=== PATIENT | female | born 1945 | race Caucasian/White ===

== ENCOUNTER → 2018-07-19 | Outpatient (CLI) | payer MEDICARE ==
[~2018-07-19] MED LIST: ALBU90OI; ALLO100; ATEN50; Aspirin EC81 MG; CHOL10002; FURO40; GABA300; INSULANPEN; K-Tab10 MEQ; MECL12.5; MITIGARE0.6 MG; Nitrostat0.4 MG; Novolog100 UNIT/2; OXYB5; Pravachol80 MG; Prinivil10 MG; RANI150
[2018-07-19 18:08] LABS: BASOPHILS ABSOLUTE AUTO 0.09 K/mm3 (0.00-0.23); BASOPHILS PERCENT AUTO 1 % (0-2); EOSINOPHILS ABSOLUTE AUTO 0.18 K/mm3 (0.00-0.68); EOSINOPHILS PERCENT AUTO 2 % (0-6); Hematocrit 49.3 % (33.0-51.0); Hemoglobin 15.5 g/dL (11.5-16.0); IMMATURE GRAN ABSOLUTE AUTO 0.02 K/mm3 (0.00-0.10); IMMATURE GRAN PERCENT AUTO 0 % (0-1); LYMPHOCYTES ABSOLUTE AUTO 2.14 K/mm3 (0.84-5.20); LYMPHOCYTES PERCENT AUTO 27 % (21-46); MONOCYTES ABSOLUTE AUTO 0.68 K/mm3 (0.16-1.47); MONOCYTES PERCENT AUTO 9 % (4-13); Mean Corpuscular HGB 29.2 pg (26.0-34.0); Mean Corpuscular HGB Conc 31.4 g/dL (31.5-36.5); Mean Corpuscular Volume 93 fL (80-100); Mean Platelet Volume 9.4 fL (9.1-12.4); NEUTROPHILS ABSOLUTE AUTO 4.86 K/mm3 (1.96-9.15); NEUTROPHILS PERCENT AUTO 61 % (41-73); Platelet Count 254 K/mm3 (150-400); RDW Coefficient Variation 14.2 % (11.7-14.2); RDW Standard Deviation 48.2 fL (35.1-46.3); White Blood Cell Count 7.97 K/mm3 (4.00-11.30)
[2018-07-19 19:25] LABS: Alanine Aminotransfer (ALT/SGP 35 U/L (12-78); Alk Phos 66 U/L (50-136); Anion Gap 10 mmol/L (6-16); Aspartate Aminotrans (AST/SGOT 30 U/L (12-37); Bilirubin, Total 0.5 mg/dL (0.1-1.0); Blood Urea Nitrogen 24 mg/dL (8-24); Bun/Creatinine Ratio 25.7 (12.0-20.0); CHOL/HDL RATIO 7.5; CO2, Blood 28 mmol/L (21-32); Calcium, Blood 9.5 mg/dL (8.5-10.1); Chloride, Blood 99 mmol/L (98-108); Cholesterol 264 mg/dL (50-200); Creatinine, Blood 0.93 mg/dL (0.40-1.00); Free Thyroxine 0.88 ng/dL (0.70-1.60); Glomerular Filtration Rate >60 (60-); Glucose, Blood 187 mg/dL (70-99); HDL Cholesterol 35 mg/dL (>39); LDL/HDL RATIO 4.4; Low Density Lipoprotein Chol 155 mg/dL (0-110); Potassium, Blood 4.5 mmol/L (3.5-5.5); Sodium, Blood 137 mmol/L (136-145); Triglycerides 369 mg/dL (30-160); Uric Acid, Blood 8.6 mg/dL (2.6-6.0); Very Low Density Lipoprot Chol 73 mg/dL (6-32)
== END ==
LOC: LAB 17:44 → LAB SHORT 17:44
PROVIDERS: Nurse Practitioner Adult Health
DX: E11.9 Type 2 diabetes mellitus without complications (principal); E78.5 Hyperlipidemia, unspecified; I10 Essential (primary) hypertension; M10.9 Gout, unspecified
CPT/HCPCS: 80053; 80061; 83036; 84439; 84443; 84550; 85025

== ENCOUNTER → 2019-04-26 | Outpatient (CLI) | payer MEDICARE, SELFPAY ==
[2019-04-26 17:49] LABS: Source, Urine Clean Catch
[2019-04-26 18:20] LABS: BASOPHILS ABSOLUTE AUTO 0.08 K/mm3 (0.00-0.23); BASOPHILS PERCENT AUTO 1 % (0-2); EOSINOPHILS ABSOLUTE AUTO 0.18 K/mm3 (0.00-0.68); EOSINOPHILS PERCENT AUTO 3 % (0-6); Hematocrit 45.8 % (33.0-51.0); Hemoglobin 14.4 g/dL (11.5-16.0); IMMATURE GRAN ABSOLUTE AUTO 0.02 K/mm3 (0.00-0.10); IMMATURE GRAN PERCENT AUTO 0 % (0-1); LYMPHOCYTES ABSOLUTE AUTO 2.36 K/mm3 (0.84-5.20); LYMPHOCYTES PERCENT AUTO 35 % (21-46); MONOCYTES ABSOLUTE AUTO 0.62 K/mm3 (0.16-1.47); MONOCYTES PERCENT AUTO 9 % (4-13); Mean Corpuscular HGB 29.3 pg (26.0-34.0); Mean Corpuscular HGB Conc 31.4 g/dL (31.5-36.5); Mean Corpuscular Volume 93 fL (80-100); Mean Platelet Volume 9.2 fL (9.1-12.4); NEUTROPHILS ABSOLUTE AUTO 3.43 K/mm3 (1.96-9.15); NEUTROPHILS PERCENT AUTO 51 % (41-73); Platelet Count 242 K/mm3 (150-400); RDW Coefficient Variation 14.7 % (11.7-14.2); RDW Standard Deviation 50.3 fL (35.1-46.3); Red Blood Cell Count 4.92 M/mm3 (3.80-5.20); White Blood Cell Count 6.69 K/mm3 (4.00-11.30)
[2019-04-26 18:47] LABS: Appearance, Urine Clear (Clear); Bilirubin, Urine Neg (Neg); Blood, Urine Neg (Neg); Color, Urine Yellow (P-Yellow); Glucose Qualitative, Urine Neg (Neg); Ketones, Urine Neg (Neg); Leukocyte Esterase, Urine 1+ (Neg); Nitrite, Urine Neg (Neg); Protein, Urine 1+ (Neg); Urobilinogen, Urine 1+ (Normal)
[2019-04-26 19:15] LABS: Bacteria Few /hpf; Red Blood Cells, Urine 0-2 /hpf (0-2); Squamous Epithelial Cells Few /hpf (Few)
[2019-04-26 19:24] LABS: Alanine Aminotransfer (ALT/SGP 33 U/L (12-78); Albumin, Blood 3.6 g/dL (3.4-5.0); Albumin/Globulin Ratio 0.9 (0.8-1.8); Alk Phos 76 U/L (50-136); Anion Gap 6 mmol/L (6-16); Aspartate Aminotrans (AST/SGOT 13 U/L (12-37); Bilirubin, Total 0.4 mg/dL (0.1-1.0); Blood Urea Nitrogen 12 mg/dL (8-24); Bun/Creatinine Ratio 14.7 (12.0-20.0); CHOL/HDL RATIO 7.1; CO2, Blood 31 mmol/L (21-32); Chloride, Blood 101 mmol/L (98-108); Cholesterol 242 mg/dL (50-200); Creatinine, Blood 0.82 mg/dL (0.40-1.00); Glomerular Filtration Rate >60 (60-); Glucose, Blood 146 mg/dL (70-99); HDL Cholesterol 34 mg/dL (>39); LDL/HDL RATIO 4.2; Low Density Lipoprotein Chol 144 mg/dL (0-110); Potassium, Blood 3.6 mmol/L (3.5-5.5); Sodium, Blood 138 mmol/L (136-145); Total Protein, Blood 7.6 g/dL (6.4-8.2); Triglycerides 319 mg/dL (30-160); Very Low Density Lipoprot Chol 63 mg/dL (6-32)
== END | disposition home or self-care (01) ==
LOC: LAB 17:46 → LAB SHORT 17:46
PROVIDERS: Nurse Practitioner Family
DX: E11.21 Type 2 diabetes mellitus with diabetic nephropathy (principal); E78.2 Mixed hyperlipidemia; K76.0 Fatty (change of) liver, not elsewhere classified
CPT/HCPCS: 80053; 80061; 81001; 82043; 85025; 86803; 87086

== ENCOUNTER → 2019-10-04 | Outpatient (CLI) | payer MEDICARE, OTHER ==
[2019-10-04 18:20] LABS: BASOPHILS PERCENT AUTO 1 % (0-2); EOSINOPHILS ABSOLUTE AUTO 0.15 K/mm3 (0.00-0.68); EOSINOPHILS PERCENT AUTO 2 % (0-6); Hematocrit 46.9 % (33.0-51.0); Hemoglobin 15.3 g/dL (11.5-16.0); IMMATURE GRAN ABSOLUTE AUTO 0.02 K/mm3 (0.00-0.10); IMMATURE GRAN PERCENT AUTO 0 % (0-1); LYMPHOCYTES ABSOLUTE AUTO 2.53 K/mm3 (0.84-5.20); LYMPHOCYTES PERCENT AUTO 32 % (21-46); MONOCYTES ABSOLUTE AUTO 0.67 K/mm3 (0.16-1.47); MONOCYTES PERCENT AUTO 9 % (4-13); Mean Corpuscular HGB 29.7 pg (26.0-34.0); Mean Corpuscular HGB Conc 32.6 g/dL (31.5-36.5); Mean Corpuscular Volume 91 fL (80-100); Mean Platelet Volume 9.5 fL (9.1-12.4); NEUTROPHILS ABSOLUTE AUTO 4.44 K/mm3 (1.96-9.15); NEUTROPHILS PERCENT AUTO 56 % (41-73); Platelet Count 263 K/mm3 (150-400); RDW Coefficient Variation 14.1 % (11.7-14.2); RDW Standard Deviation 46.5 fL (35.1-46.3); Red Blood Cell Count 5.16 M/mm3 (3.80-5.20); White Blood Cell Count 7.91 K/mm3 (4.00-11.30)
[2019-10-04 18:24] LABS: Appearance, Urine Clear (Clear); Bilirubin, Urine Neg (Neg); Blood, Urine Neg (Neg); Color, Urine Yellow (P-Yellow); Glucose Qualitative, Urine Neg (Neg); Ketones, Urine Neg (Neg); Leukocyte Esterase, Urine Neg (Neg); Nitrite, Urine Neg (Neg); Protein, Urine 2+ (Neg); Specific Gravity, Urine 1.015 (1.003-1.022); Urobilinogen, Urine 1+ (Normal)
[2019-10-04 18:41] LABS: Bacteria Few /hpf; Red Blood Cells, Urine Not Seen /hpf (0-2); Squamous Epithelial Cells Few /hpf (Few); White Blood Cells, Urine 0-2 /hpf (0-5)
[2019-10-04 19:15] LABS: Alanine Aminotransfer (ALT/SGP 21 U/L (12-78); Albumin, Blood 3.8 g/dL (3.4-5.0); Alk Phos 79 U/L (50-136); Anion Gap 7 mmol/L (6-16); Aspartate Aminotrans (AST/SGOT 10 U/L (12-37); Bilirubin, Total 0.6 mg/dL (0.1-1.0); Blood Urea Nitrogen 15 mg/dL (8-24); Bun/Creatinine Ratio 20.2 (12.0-20.0); CHOL/HDL RATIO 7.8; CO2, Blood 29 mmol/L (21-32); Calcium, Blood 9.4 mg/dL (8.5-10.1); Chloride, Blood 100 mmol/L (98-108); Cholesterol 241 mg/dL (50-200); Creatinine, Blood 0.74 mg/dL (0.40-1.00); Globulin, Blood 3.8 g/dL (2.2-4.0); Glomerular Filtration Rate >60 (60-); Glucose, Blood 146 mg/dL (70-99); HDL Cholesterol 31 mg/dL (>39); LDL/HDL RATIO 4.9; Low Density Lipoprotein Chol 153 mg/dL (0-110); Sodium, Blood 136 mmol/L (136-145); Total Protein, Blood 7.6 g/dL (6.4-8.2); Triglycerides 285 mg/dL (30-160); Very Low Density Lipoprot Chol 57 mg/dL (6-32)
== END ==
LOC: LAB 16:29 → LAB SHORT 16:29
PROVIDERS: Nurse Practitioner Family
DX: E11.21 Type 2 diabetes mellitus with diabetic nephropathy (principal); E78.2 Mixed hyperlipidemia
CPT/HCPCS: 80053; 80061; 81001; 82043; 85025

== ENCOUNTER → 2020-08-30 | Outpatient (CLI) | payer MEDICARE, OTHER ==
[2020-08-30 19:02] LABS: BASOPHILS PERCENT AUTO 1 % (0-2); EOSINOPHILS ABSOLUTE AUTO 0.18 K/mm3 (0.00-0.68); EOSINOPHILS PERCENT AUTO 2 % (0-6); Hematocrit 47.7 % (33.0-51.0); Hemoglobin 15.1 g/dL (11.5-16.0); IMMATURE GRAN ABSOLUTE AUTO 0.02 K/mm3 (0.00-0.10); IMMATURE GRAN PERCENT AUTO 0 % (0-1); LYMPHOCYTES ABSOLUTE AUTO 2.44 K/mm3 (0.84-5.20); LYMPHOCYTES PERCENT AUTO 33 % (21-46); MONOCYTES ABSOLUTE AUTO 0.56 K/mm3 (0.16-1.47); MONOCYTES PERCENT AUTO 8 % (4-13); Mean Corpuscular HGB 28.9 pg (26.0-34.0); Mean Corpuscular HGB Conc 31.7 g/dL (31.5-36.5); Mean Corpuscular Volume 91 fL (80-100); Mean Platelet Volume 9.5 fL (9.1-12.4); NEUTROPHILS ABSOLUTE AUTO 4.15 K/mm3 (1.96-9.15); NEUTROPHILS PERCENT AUTO 56 % (41-73); Platelet Count 259 K/mm3 (150-400); RDW Standard Deviation 49.7 fL (35.1-46.3); Red Blood Cell Count 5.22 M/mm3 (3.80-5.20); White Blood Cell Count 7.45 K/mm3 (4.00-11.30)
[2020-08-30 19:39] LABS: Alanine Aminotransfer (ALT/SGP 17 U/L (12-78); Albumin, Blood 3.8 g/dL (3.4-5.0); Albumin/Globulin Ratio 1.1 (0.8-1.8); Alk Phos 74 U/L (50-136); Anion Gap 6 mmol/L (6-16); Aspartate Aminotrans (AST/SGOT 14 U/L (12-37); Bilirubin, Total 0.5 mg/dL (0.1-1.0); Blood Urea Nitrogen 16 mg/dL (8-24); Bun/Creatinine Ratio 18.6 (12.0-20.0); CHOL/HDL RATIO 7.4; CO2, Blood 33 mmol/L (21-32); Calcium, Blood 9.6 mg/dL (8.5-10.1); Chloride, Blood 103 mmol/L (98-108); Cholesterol 253 mg/dL (50-200); Creatinine, Blood 0.86 mg/dL (0.40-1.00); Globulin, Blood 3.6 g/dL (2.2-4.0); Glomerular Filtration Rate >60 (60-); Glucose, Blood 99 mg/dL (70-99); HDL Cholesterol 34 mg/dL (>39); LDL/HDL RATIO 4.5; Low Density Lipoprotein Chol 154 mg/dL (0-110); Potassium, Blood 4.1 mmol/L (3.5-5.5); Sodium, Blood 142 mmol/L (136-145); Total Protein, Blood 7.4 g/dL (6.4-8.2); Triglycerides 327 mg/dL (30-160); Very Low Density Lipoprot Chol 65 mg/dL (6-32)
== END | disposition home or self-care (01) ==
LOC: LAB SHORT 17:35 → LAB 17:35
PROVIDERS: Nurse Practitioner Family
DX: E11.21 Type 2 diabetes mellitus with diabetic nephropathy (principal)
CPT/HCPCS: 80053; 80061; 83036; 85025

== ENCOUNTER → 2020-12-05 | Outpatient (CLI) | payer MEDICARE, OTHER ==
[2020-12-05 19:10] LABS: BASOPHILS ABSOLUTE AUTO 0.07 K/mm3 (0.00-0.23); BASOPHILS PERCENT AUTO 1 % (0-2); EOSINOPHILS ABSOLUTE AUTO 0.18 K/mm3 (0.00-0.68); EOSINOPHILS PERCENT AUTO 2 % (0-6); Hematocrit 46.3 % (33.0-51.0); Hemoglobin 14.8 g/dL (11.5-16.0); IMMATURE GRAN ABSOLUTE AUTO 0.03 K/mm3 (0.00-0.10); IMMATURE GRAN PERCENT AUTO 0 % (0-1); LYMPHOCYTES ABSOLUTE AUTO 2.29 K/mm3 (0.84-5.20); LYMPHOCYTES PERCENT AUTO 28 % (21-46); MONOCYTES ABSOLUTE AUTO 0.56 K/mm3 (0.16-1.47); MONOCYTES PERCENT AUTO 7 % (4-13); Mean Corpuscular HGB 29.2 pg (26.0-34.0); Mean Corpuscular Volume 91 fL (80-100); Mean Platelet Volume 9.4 fL (9.1-12.4); NEUTROPHILS ABSOLUTE AUTO 5.07 K/mm3 (1.96-9.15); NEUTROPHILS PERCENT AUTO 62 % (41-73); Platelet Count 268 K/mm3 (150-400); RDW Coefficient Variation 15.2 % (11.7-14.2); RDW Standard Deviation 50.8 fL (35.1-46.3); Red Blood Cell Count 5.07 M/mm3 (3.80-5.20)
[2020-12-05 20:18] LABS: Alanine Aminotransfer (ALT/SGP 22 U/L (12-78); Albumin, Blood 3.6 g/dL (3.4-5.0); Albumin/Globulin Ratio 1.1 (0.8-1.8); Alk Phos 77 U/L (50-136); Anion Gap 7 mmol/L (6-16); Aspartate Aminotrans (AST/SGOT 16 U/L (12-37); Bilirubin, Total 0.3 mg/dL (0.1-1.0); Blood Urea Nitrogen 15 mg/dL (8-24); Bun/Creatinine Ratio 22.5 (12.0-20.0); CHOL/HDL RATIO 8.9; CO2, Blood 28 mmol/L (21-32); Calcium, Blood 8.6 mg/dL (8.5-10.1); Chloride, Blood 102 mmol/L (98-108); Cholesterol 240 mg/dL (50-200); Creatinine, Blood 0.67 mg/dL (0.40-1.00); Globulin, Blood 3.3 g/dL (2.2-4.0); Glomerular Filtration Rate >60 (60-); Glucose, Blood 172 mg/dL (70-99); HDL Cholesterol 27 mg/dL (>39); LDL/HDL RATIO Unable to Calculate; Low Density Lipoprotein Chol Unable to Calculate mg/dL (0-110); Potassium, Blood 3.7 mmol/L (3.5-5.5); Sodium, Blood 137 mmol/L (136-145); Total Protein, Blood 6.9 g/dL (6.4-8.2); Triglycerides 541 mg/dL (30-160); Very Low Density Lipoprot Chol Unable to Calculate mg/dL (6-32)
== END ==
LOC: LAB 17:09 → LAB SHORT 17:09
PROVIDERS: Nurse Practitioner Family
DX: E11.21 Type 2 diabetes mellitus with diabetic nephropathy (principal); E78.2 Mixed hyperlipidemia
CPT/HCPCS: 80053; 80061; 83036; 83721; 85025

== ENCOUNTER 2023-03-29 10:50 | Emergency (ER) | payer MEDICARE, OTHER ==
[~2023-03-29] VITALS: Ht 157.5 cm; Wt 106.6 kg
[~2023-03-29 10:50] MED LIST changes: -ATEN50; +ATEN50 PO; +FURO80 PO
[2023-03-29] MEDS ORDERED: ZYRTEC10 M1 PO (11:03)
[2023-03-29] MEDS ORDERED: LASIX40 MG PO (11:03)
[2023-03-29] MEDS ORDERED: APRI1 EACH (11:04)
[2023-03-29] MEDS ORDERED: ASPIR 8181 M1 PO (11:04)
[2023-03-29] MEDS ORDERED: GABA300 PO (11:05)
[2023-03-29] MEDS ORDERED: ZYLOPRIM300 M1 PO (11:05)
[2023-03-29] MEDS ORDERED: [UNRECOGNIZED DRUG - OTHER] TOP (11:07)
[2023-03-29] MEDS ORDERED: INSDET100 SC (11:08)
[2023-03-29] MEDS ORDERED: NOVOLIN N100 UNIT/2 SC (11:10)
[2023-03-29 11:42] VITALS: BP 110/60
[2023-03-29] MEDS ORDERED: OXYC5 PO (11:52)
== END 2023-03-29 12:04 | disposition home or self-care (01) ==
LOC: ER 10:50
DX: S80.01XA Contusion of right knee, initial encounter (principal); S50.311A Abrasion of right elbow, initial encounter; Z88.5 Allergy status to narcotic agent; Z88.6 Allergy status to analgesic agent; Z87.891 Personal history of nicotine dependence; W18.30XA Fall on same level, unspecified, initial encounter
CPT/HCPCS: 73562-RT; A9270

== ENCOUNTER 2023-09-10 09:53 | Day surgery (SDC) | payer MEDICARE, OTHER ==
[~2023-09-10] VITALS: Ht 154.9 cm; Wt 105.1 kg
[~2023-09-10 09:53] MED LIST changes: +ACETAMINOPHEN PO; +APRI1 EACH; +ASPIR 8181 M1 PO; +GABA300 PO; +LASIX40 MG PO; +LEVEMIR100 UNIT/1 SC; +MIRALAX17 GM PO; +NOVOLIN N100 UNIT/2 SC; +OXYC5 PO; +PEPCID20 MG PO; +SENN187 PO; +TRAM50 PO; +ZYLOPRIM300 M1 PO; +ZYRTEC10 M1 PO; +[UNRECOGNIZED DRUG - OTHER] TOP
[2023-09-10 10:26] VITALS: BP 135/69
--- NOTE | 2023-09-10 10:41 | NUR ---
Wheelchaired into Day Surgery. SBA needed. Uses walker at home. History, Chart, Medications and Allergies reviewed before start of procedure. Pre-Op teaching done. Pt verbalizes understanding. Patient States Post-Procedure ride home has been arranged.
[2023-09-10] MEDS ORDERED: STEGLATRO5 MG PO (10:45)
[2023-09-10] MEDS ORDERED: ZYRTEC10 M2 PO (10:45)
[2023-09-10] MEDS ORDERED: ALLO300 PO (10:46)
[2023-09-10] MEDS ORDERED: FAMO20 PO (10:46)
--- NOTE | 2023-09-10 11:11 | NUR ---
1110 SPRAYED 4% LIDOCAINE TO BACK OF THROAT PER ANESTHESIA ORDERS PRIOR TO PROCEDURE.
--- NOTE | 2023-09-10 11:29 | NUR ---
09/10/[address] HAWK, SEE ANESTHESIA RECORDS
[2023-09-10 11:34] VITALS: BP 137/66
[2023-09-10 11:45] VITALS: BP 134/80
[2023-09-10 12:00] VITALS: BP 147/78
[2023-09-10 12:15] VITALS: BP 135/63
[2023-09-10 12:30] VITALS: BP 142/78
--- NOTE | 2023-09-10 13:10 | NUR ---
Patient up to Ambulate independently WITH WALKER,NORMAL FOR HER. Gait steady. Discharge instructions reviewed with patient. Patient verbalizes understanding. Copy given to patient to take home, WELL DAUGHTER. DAUGHTER TO CURLING MACHINE OPERATOR PRESCRIPTION FROM DR. LEBRON'S OFFICE WHO REPORTS HAVING IT AT THE HYDROELECTRIC MECHANIC. Patient States Post-Procedure ride home has been arranged. Discharged via wheelchair to private car for ride home. WILL CALL [facility] AND GIVE THEM REPORT WELL. PT REPORTS READY TO GO HOME. DENIES CP/SOB,N/V. PT REPORTS NOT TAKING HER ATENOLOL OR OTHER MEDICATIONS THIS MORNING. PT ON ROOM AIR 92-94%,SEE VS.
--- NOTE | 2023-09-10 13:20 | NUR ---
SUDHAKAR AT CANAL POINT GIVEN REPORT, INCLUDING TO GIVE MEDICATIONS AND NEW PRESCRIPTION.
== END 2023-09-10 13:20 | disposition home or self-care (01) ==
LOC: ORSCMMR 09:53 → ORD 11:15 → ORSCMMR 11:15
PROVIDERS: Internal Medicine Gastroenterology
PROC: 0DB68ZX Excision of Stomach, Via Natural or Artificial Opening Endoscopic, Diagnostic (ICD-10-PCS; principal; 2023-09-10 11:15)
PROC: 0DB58ZX Excision of Esophagus, Via Natural or Artificial Opening Endoscopic, Diagnostic (ICD-10-PCS; principal; 2023-09-10 11:15)
DX: R13.14 Dysphagia, pharyngoesophageal phase (principal); K20.90 Esophagitis, unspecified without bleeding; K29.70 Gastritis, unspecified, without bleeding; K22.2 Esophageal obstruction; J44.9 Chronic obstructive pulmonary disease, unspecified; E11.9 Type 2 diabetes mellitus without complications; M10.9 Gout, unspecified; G47.30 Sleep apnea, unspecified; I42.2 Other hypertrophic cardiomyopathy; E66.01 Morbid (severe) obesity due to excess calories; Z68.41 Body mass index [BMI] 40.0-44.9, adult; I10 Essential (primary) hypertension; Z99.81 Dependence on supplemental oxygen; Z79.4 Long term (current) use of insulin; Z79.899 Other long term (current) drug therapy
CPT/HCPCS: 82947; 88305; 88312; 93005; 93010; C1726; J2001; J2704; J7120

== ENCOUNTER → 2023-10-22 | Outpatient (CLI) | payer MEDICARE, OTHER ==
[~2023-10-22] MED LIST changes: +ALLO300 PO; +FAMO20 PO; +STEGLATRO5 MG PO; +ZYRTEC10 M2 PO
[2023-10-22 14:13] LABS: Appearance, Urine Hazy (Clear); Bilirubin, Urine Neg (Neg); Blood, Urine Neg (Neg); Color, Urine Yellow (P-Yellow); Glucose Qualitative, Urine Neg (Neg); Ketones, Urine Neg (Neg); Leukocyte Esterase, Urine Neg (Neg); Nitrite, Urine Neg (Neg); Protein, Urine 3+ (Neg); Urobilinogen, Urine NORM (Normal)
[2023-10-22 14:26] LABS: Amorphous Light (0-Heavy); Bacteria Few /hpf; Hyaline Casts 0-2 /lpf (0-2); Red Blood Cells, Urine 0-2 /hpf (0-2); Squamous Epithelial Cells Few /hpf (Few)
== END ==
LOC: LAB SHORT 10:30 → LAB 10:30
PROVIDERS: Student in an Organized Health Care Education/Training Program
DX: N39.0 Urinary tract infection, site not specified (principal)
CPT/HCPCS: 81001

== ENCOUNTER 2024-02-16 09:03 | Emergency (ER) | payer MEDICARE, OTHER ==
[~2024-02-16] VITALS: Ht 157.5 cm; Wt 111.1 kg
[2024-02-16] MEDS ORDERED: OxyCODONE HCL 5 MG TAB PO ONE (09:45)
[2024-02-16 11:30] VITALS: BP 105/95
== END 2024-02-16 11:33 | disposition home or self-care (01) ==
LOC: ER 09:03
DX: S20.219A Contusion of unspecified front wall of thorax, initial encounter (principal); I10 Essential (primary) hypertension; J44.9 Chronic obstructive pulmonary disease, unspecified; I42.2 Other hypertrophic cardiomyopathy; W18.30XA Fall on same level, unspecified, initial encounter; Y92.129 Unspecified place in nursing home as the place of occurrence of the external cause; Z88.8 Allergy status to other drugs, medicaments and biological substances; Z88.5 Allergy status to narcotic agent; Z79.899 Other long term (current) drug therapy; Z79.82 Long term (current) use of aspirin; Z79.4 Long term (current) use of insulin; Z79.84 Long term (current) use of oral hypoglycemic drugs; Z87.891 Personal history of nicotine dependence
CPT/HCPCS: 71046; 93005; 93010; 99284-25; A9270

== ENCOUNTER 2024-08-16 08:45 | Day surgery (SDC) | payer MEDICARE, OTHER ==
[~2024-08-16] VITALS: Ht 157.5 cm; Wt 104.5 kg
[~2024-08-16 08:45] MED LIST changes: +Aspir 8181 MG PO; +BASAGLAR K100 UNIT/1; +Balanced Salt Epinephrine Irrigation Solution 500 mL IR SCH; +INSULIN AS100 UNIT/8 SC; +INSULIN AS100 UNIT/9 SC; +Lidocaine HCl/Pf 1% 5 ML VIAL ONE; +Lidocaine HCl/Pf 1% 5 ML VIAL XX SCH; +Moxifloxacin HCL 0.5 MG/0.1 ML 0.4MLSYR LEFTEYE SCH; +NS 500 ML IV ONE; +PHENYLEPHRINE\\TROPICAMIDE\\TETRACAINE OPHTHALMIC DILATING SOLN LEFTEYE PRN; +Povidone-Iodine 450 DROP/30 ML Solution LEFTEYE SCH; +Povidone-Iodine 450 DROP/30 ML Solution ONE; +TOUJEO MAX300 UNIT/2 SC; +Tetracaine HCl/Pf 0.5% Opth Soln 4 ml ONE
[2024-08-16] MEDS ORDERED: ACET500 PO (09:05)
[2024-08-16] MEDS ORDERED: ALBU90OI INH (09:07)
[2024-08-16] MEDS ORDERED: NS 500 ML IV ONE (09:18)
--- NOTE | 2024-08-16 09:19 | NUR ---
08/16/24 0919 Zuleyma Peter CALL LIGHT WITHIN REACH. TETRACAINE IN LEFT EYE AT 0903 AND PLEDGETT IN AT 0904
[2024-08-16] MEDS ORDERED: FentaNYL Citrate 50 MCG/ML 2 ML Injection ONE (10:06)
[2024-08-16] MEDS ORDERED: Midazolam HCl 1MG / ML 2ML Vial ONE (10:06)
[2024-08-16 10:45] VITALS: BP 141/63
== END 2024-08-16 11:11 | disposition home or self-care (01) ==
LOC: ORSCSDS 08:45
PROVIDERS: Student in an Organized Health Care Education/Training Program
PROC: 08RK3JZ Replacement of Left Lens with Synthetic Substitute, Percutaneous Approach (ICD-10-PCS; principal; 2024-08-16 10:00)
DX: E11.36 Type 2 diabetes mellitus with diabetic cataract (principal); H25.813 Combined forms of age-related cataract, bilateral; J44.89 Other specified chronic obstructive pulmonary disease; Z87.891 Personal history of nicotine dependence; G47.33 Obstructive sleep apnea (adult) (pediatric); E66.01 Morbid (severe) obesity due to excess calories; Z68.41 Body mass index [BMI] 40.0-44.9, adult; Z79.4 Long term (current) use of insulin; Z79.899 Other long term (current) drug therapy; Z79.82 Long term (current) use of aspirin
CPT/HCPCS: 82947; J2001; J2250; J3010; J7040; V2632

== ENCOUNTER → 2024-08-19 | Outpatient (CLI) | payer MEDICARE, OTHER ==
[~2024-08-19] MED LIST changes: +ACET500; +ALBU90OI INH; -Balanced Salt Epinephrine Irrigation Solution 500 mL IR SCH; -Lidocaine HCl/Pf 1% 5 ML VIAL ONE; -Lidocaine HCl/Pf 1% 5 ML VIAL XX SCH; -Moxifloxacin HCL 0.5 MG/0.1 ML 0.4MLSYR LEFTEYE SCH; -NS 500 ML IV ONE; -PHENYLEPHRINE\\TROPICAMIDE\\TETRACAINE OPHTHALMIC DILATING SOLN LEFTEYE PRN; -Povidone-Iodine 450 DROP/30 ML Solution LEFTEYE SCH; -Povidone-Iodine 450 DROP/30 ML Solution ONE; -Tetracaine HCl/Pf 0.5% Opth Soln 4 ml ONE
[2024-08-19 14:35] LABS: Source, Urine Voided
[2024-08-19 16:15] LABS: Appearance, Urine Clear (Clear); Bilirubin, Urine Neg (Neg); Blood, Urine Neg (Neg); Color, Urine Yellow (P-Yellow); Glucose Qualitative, Urine Neg (Neg); Ketones, Urine Neg (Neg); Leukocyte Esterase, Urine Neg (Neg); Nitrite, Urine Neg (Neg); Protein, Urine 4+ (Neg); Specific Gravity, Urine 1.025 (1.003-1.022); Urobilinogen, Urine NORM (Normal)
[2024-08-19 16:28] LABS: Amorphous Light (0-Heavy); Bacteria Few /hpf; Red Blood Cells, Urine Not Seen /hpf (0-2); Squamous Epithelial Cells Few /hpf (Few); White Blood Cells, Urine 0-2 /hpf (0-5)
== END ==
LOC: LAB 14:32 → LAB SHORT 14:32
PROVIDERS: Student in an Organized Health Care Education/Training Program
DX: R32 Unspecified urinary incontinence (principal)
CPT/HCPCS: 81001

== ENCOUNTER 2024-08-23 08:59 | Day surgery (SDC) | payer MEDICARE, OTHER ==
[~2024-08-23] VITALS: Ht 157.5 cm; Wt 105.1 kg
[~2024-08-23 08:59] MED LIST changes: +Balanced Salt Epinephrine Irrigation Solution 500 mL IR SCH; +Lidocaine HCl/Pf 1% 5 ML VIAL XX SCH; +Moxifloxacin HCL 0.5 MG/0.1 ML 0.4MLSYR RIGHTEYE SCH; +NS 500 ML IV ONE; +PHENYLEPHRINE\\TROPICAMIDE\\TETRACAINE OPHTHALMIC DILATING SOLN RIGHTEYE PRN; +Povidone-Iodine 450 DROP/30 ML Solution ONE; +Povidone-Iodine 450 DROP/30 ML Solution RIGHTEYE SCH; +Tetracaine HCl/Pf 0.5% Opth Soln 4 ml ONE; +Tropicamide 1% Opth Soln 15 ML BTL ONE
[2024-08-23] MEDS ORDERED: Midazolam HCl 1MG / ML 2ML Vial ONE (10:08)
[2024-08-23 10:52] VITALS: BP 135/60
--- NOTE | 2024-08-23 10:53 | NUR ---
08/23/24 1053 Mera Kimbrough PT INITIALLY VERY SLEEPY ON ARRIVAL TO SDU, SATS DOWN TO 88%. PLACED 4L BY NC, SATS UP TO 98%. PT SAT UP IN CHAIR, ON RA SATS 100% FOR 7 MIN.
== END 2024-08-23 10:59 | disposition home or self-care (01) ==
LOC: ORSCSDS 08:59
PROVIDERS: Student in an Organized Health Care Education/Training Program
PROC: 08RJ3JZ Replacement of Right Lens with Synthetic Substitute, Percutaneous Approach (ICD-10-PCS; principal; 2024-08-23 10:30)
DX: E11.36 Type 2 diabetes mellitus with diabetic cataract (principal); H25.811 Combined forms of age-related cataract, right eye; E11.22 Type 2 diabetes mellitus with diabetic chronic kidney disease; I12.9 Hypertensive chronic kidney disease with stage 1 through stage 4 chronic kidney disease, or unspecified chronic kidney disease; N18.9 Chronic kidney disease, unspecified; J44.9 Chronic obstructive pulmonary disease, unspecified; Z79.4 Long term (current) use of insulin; Z79.899 Other long term (current) drug therapy; E66.01 Morbid (severe) obesity due to excess calories; Z68.41 Body mass index [BMI] 40.0-44.9, adult
CPT/HCPCS: 82947; J2250; J7040; V2632

== ENCOUNTER 2024-08-28 12:42 | Inpatient (IN) | payer MEDICARE, OTHER ==
[~2024-08-28] VITALS: Ht 162.6 cm; Wt 105.5 kg
[~2024-08-28 12:42] MED LIST changes: -ACET500; +ACET500 PO; -Balanced Salt Epinephrine Irrigation Solution 500 mL IR SCH; -Lidocaine HCl/Pf 1% 5 ML VIAL XX SCH; -Moxifloxacin HCL 0.5 MG/0.1 ML 0.4MLSYR RIGHTEYE SCH; -NS 500 ML IV ONE; -PHENYLEPHRINE\\TROPICAMIDE\\TETRACAINE OPHTHALMIC DILATING SOLN RIGHTEYE PRN; -Povidone-Iodine 450 DROP/30 ML Solution ONE; -Povidone-Iodine 450 DROP/30 ML Solution RIGHTEYE SCH; -Tetracaine HCl/Pf 0.5% Opth Soln 4 ml ONE; -Tropicamide 1% Opth Soln 15 ML BTL ONE
[2024-08-28] MEDS ORDERED: NS 1,000 ML IV ONE (13:20)
[2024-08-28 13:41] LABS: BASOPHILS ABSOLUTE AUTO 0.05 K/mm3 (0.00-0.23); BASOPHILS PERCENT AUTO 1 % (0-2); EOSINOPHILS ABSOLUTE AUTO 0.04 K/mm3 (0.00-0.68); EOSINOPHILS PERCENT AUTO 1 % (0-6); Hematocrit 51.1 % (33.0-51.0); Hemoglobin 15.4 g/dL (11.5-16.0); IMMATURE GRAN ABSOLUTE AUTO 0.04 K/mm3 (0.00-0.10); IMMATURE GRAN PERCENT AUTO 1 % (0-1); LYMPHOCYTES ABSOLUTE AUTO 1.09 K/mm3 (0.84-5.20); LYMPHOCYTES PERCENT AUTO 21 % (21-46); MONOCYTES ABSOLUTE AUTO 0.87 K/mm3 (0.16-1.47); MONOCYTES PERCENT AUTO 16 % (4-13); Mean Corpuscular HGB 27.1 pg (26.0-34.0); Mean Corpuscular HGB Conc 30.1 g/dL (31.5-36.5); Mean Corpuscular Volume 90 fL (80-100); Mean Platelet Volume 8.8 fL (9.1-12.4); NEUTROPHILS ABSOLUTE AUTO 3.24 K/mm3 (1.96-9.15); NEUTROPHILS PERCENT AUTO 61 % (41-73); Platelet Count 178 K/mm3 (150-400); RDW Coefficient Variation 15.9 % (11.7-14.2); RDW Standard Deviation 52.6 fL (35.1-46.3); Red Blood Cell Count 5.68 M/mm3 (3.80-5.20); White Blood Cell Count 5.33 K/mm3 (4.00-11.30)
[2024-08-28 14:11] LABS: Albumin, Blood 3.2 g/dL (3.4-5.0); Albumin/Globulin Ratio 0.8 (0.8-1.8); Bilirubin, Total 0.4 mg/dL (0.1-1.0); Bun/Creatinine Ratio 33.1 (12.0-20.0); Calcium, Blood 9.4 mg/dL (8.5-10.1); Creatinine, Blood 1.54 mg/dL (0.40-1.00); Potassium, Blood 4.4 mmol/L (3.5-5.5); Total Protein, Blood 7.2 g/dL (6.4-8.2)
[2024-08-28] MEDS ORDERED: Albuterol 2.5 MG/3 ML VIAL INH PRN (18:20)
[2024-08-28] MEDS ORDERED: NS 1,000 ML IV SCH (18:25)
[2024-08-28] MEDS ORDERED: Ondansetron HCl 2 MG / ML 2ML Vial IV PRN (18:25)
[2024-08-28 20:23] VITALS: BP 146/62
[2024-08-28 20:47] LABS: Influenza A, PCR NEGATIVE (NEGATIVE); Influenza B, PCR NEGATIVE (NEGATIVE); Resp Syncytial Virus, PCR NEGATIVE (NEGATIVE); SARS-Cov-2 (COVID-19) PCR, MMC NEGATIVE (NEGATIVE)
[2024-08-28 21:00] VITALS: BP 142/68
[2024-08-28] MEDS ORDERED: Gabapentin 300 MG Cap PO SCH (21:00)
[2024-08-28] MEDS ORDERED: Insulin Glargine-Yfgn 100 Unit/mL 3 ML SYR SC SCH (21:00)
[2024-08-28] MEDS ORDERED: Famotidine 20 MG Tab PO SCH (21:00)
[2024-08-28 22:00] VITALS: BP 146/67
[2024-08-28] MEDS ORDERED: FLU VACC TS2024-25(6MOS UP)/PF 45 MCG/0.5 ML SYRINGE IM ONE (22:00)
[2024-08-28] MEDS ORDERED: [UNRECOGNIZED DRUG - SUPPLY] (22:31)
[2024-08-28] MEDS ORDERED: OCUFLOX511 (22:32)
[2024-08-28] MEDS ORDERED: FUROSEMIDE40 MG PO (22:32)
[2024-08-28] MEDS ORDERED: KETOROLAC TROMET3 ML (22:33)
[2024-08-28] MEDS ORDERED: NEURONTIN300 MG PO (22:33)
[2024-08-28] MEDS ORDERED: PRED FORTE5 ML (22:36)
[2024-08-28] MEDS ORDERED: NOVOLOG100 UNIT/2 (22:37)
[2024-08-28] MEDS ORDERED: TOUJEO SOL300 UNIT/2 (22:38)
[2024-08-28] MEDS ORDERED: ACET500 PO (22:57)
[2024-08-28 23:00] VITALS: BP 137/68
[2024-08-28 23:00] LABS: Source, Urine Clean Catch
[2024-08-28] MEDS ORDERED: MIRALAX17 GM PO (23:01)
[2024-08-28] MEDS ORDERED: SENN187 PO (23:01)
[2024-08-28 23:22] LABS: Bilirubin, Urine Neg (Neg); Blood, Urine 4+ (Neg); Glucose Qualitative, Urine 1+ (Neg); Ketones, Urine Neg (Neg); Leukocyte Esterase, Urine 1+ (Neg); Nitrite, Urine Neg (Neg); Protein, Urine 4+ (Neg); Urobilinogen, Urine NORM (Normal)
[2024-08-28 23:23] LABS: Appearance, Urine Hazy (Clear); Color, Urine Yellow (P-Yellow)
[2024-08-28 23:24] LABS: Bacteria Few /hpf; Other Crystals Many /hpf; Red Blood Cells, Urine 0-2 /hpf (0-2); Squamous Epithelial Cells Few /hpf (Few)
[2024-08-29] VITALS (33 sets, daily range): BP systolic 102–140; BP diastolic 42–85
[2024-08-29] MEDS ORDERED: Insulin Human Lispro 100 Units/ML 3ML Syringe SC SCH
[2024-08-29 02:43] LABS: Base Excess Venous 6.4 mmol/L; Bicarbonate Venous 28.5 mmol/L (24.0-30.0); pH Blood Venous 7.34 (7.34-7.37)
[2024-08-29 02:46] LABS: Hematocrit 46.3 % (33.0-51.0); Hemoglobin 13.8 g/dL (11.5-16.0); Mean Corpuscular HGB 27.2 pg (26.0-34.0); Mean Corpuscular HGB Conc 29.8 g/dL (31.5-36.5); Mean Corpuscular Volume 91 fL (80-100); Mean Platelet Volume 8.7 fL (9.1-12.4); Platelet Count 163 K/mm3 (150-400); RDW Coefficient Variation 15.9 % (11.7-14.2); RDW Standard Deviation 53.1 fL (35.1-46.3); Red Blood Cell Count 5.07 M/mm3 (3.80-5.20)
--- NOTE | 2024-08-29 03:00 | NUR ---
CHANGE IN NEURO: PATIENT HAS BECAME MORE LETHARGIC, OPENS TO EYES, AND RESPONDS TO PAINFUL STIMULI. DR. SILVEIRA, AT BEDSIDE. PATIENT PLACED ON V30 BIPAP. SEE RT ASSESSMENT. PREVIOUS ABLE TO ANSWER QUESTIONS APPROPRIATELY WITH MILD CONFUSION. PATIENT DIFFICULTY WITH SPEECH. VERY LETHARGIC. VBG OBTAINED, AND REPEAT ONCE ON BIPAP FOR A HOUR.
[2024-08-29 03:08] LABS: Albumin, Blood 2.9 g/dL (3.4-5.0); Albumin/Globulin Ratio 0.8 (0.8-1.8); Bilirubin, Total 0.4 mg/dL (0.1-1.0); Bun/Creatinine Ratio 31.6 (12.0-20.0); Calcium, Blood 8.7 mg/dL (8.5-10.1); Creatinine, Blood 1.36 mg/dL (0.40-1.00); Globulin, Blood 3.5 g/dL (2.2-4.0); Magnesium, Blood 2.1 mg/dL (1.6-2.4); Potassium, Blood 4.2 mmol/L (3.5-5.5); Total Protein, Blood 6.4 g/dL (6.4-8.2)
--- NOTE | 2024-08-29 04:25 | NUR ---
VBG RESULTS. PATIENT WITH NO IMPROVEMENT. ASSESSED REPEAT VBG WORSE. RT CHANGING SETTINGS. REPEAT AT 0600 WITH V60 AND INCREASED SETTINGS. PATIENT STILL LETHARGIC. PROVIDER AWARE. AM LABS SLIGHTLY IMPROVED. PATIENT STILL INFUSING NS 100. SOFTER DIASTOLIC BP MAP >60. PROVIDER AWARE. CONTINUOUS TELE AND PULSE OX IN PLACE, NO CT AT THIS TIME ORDERED. PLAN OF CARE CONTINOUS AT TIME NO H&P SEEN IN [facility].
[2024-08-29 04:45] LABS: Base Excess Venous 8.7 mmol/L; Bicarbonate Venous 29.1 mmol/L (24.0-30.0); PCO2 Venous 73.6 mmHg (38-42); pH Blood Venous 7.29 (7.34-7.37)
--- NOTE | 2024-08-29 05:51 | NUR ---
EOS: PATIENT LETHARGIC, STILL NO CHANGES. RESIDENT AWARE. BIPAP ON INCREASED SETTINGS RT ASSESSMENT IN SPO2 >94%. SOFT BLOOD PRESSURE MAP >60. Q2 REPOSITIONS. ORAL DEFERRED AT THIS TIME. 1 X PROVIDED BY INTERMEDIATE MANAGER. DENTURES IN CUP NEXT TO BED. 1 VERY LARGE INCONTINENT VOID AND 1 MEDIUM INCONTINENT EPISODE. PUREWICK IS NOT WORKING DUE TO ANATOMY. NO BOWEL MOVEMENTS NOTED PLAN OF CARE CONTINUES.
[2024-08-29 06:13] LABS: Bicarbonate Venous 29.4 mmol/L (24.0-30.0); pH Blood Venous 7.27 (7.34-7.37)
--- NOTE | 2024-08-29 07:15 | NUR ---
TRANSFTER TO ICU 6. REPORT GIVEN TO RECIIEVING TIE IN MACHINE OPERATOR NO ACUTE QUESTIONS OR CONCERNS AT TIME OF BEDSIDE SHIFT REPORT.PATIENT WITH OVERALL DECLINING RESPIRATORY DRIVE AND WORSENING VBG'S. DR. BRYAN CALLED WITH CRITICAL 0600 VBG. HE CONTACTED PULMONOLOGY PERSONALLY ATTEMPTED TO CALL SON. NUMBER IN CHART. NO FURTHER CONCERNS FROM THIS RN AT TIME OF REPORT TO TIE IN MACHINE OPERATOR.
--- NOTE | 2024-08-29 08:46 | NUR ---
TRANSFER PT ARRIVED FROM PCU 12. BEDSIDE REPORT RECEIVED FORM DEMETRIO ALEJANDRO. PT RESTING ON BIPAP. CALLED AND SPOKE WITH PT'S SON EMERY UPDATING HIM ON TRANSFER. HE STATED THAT HIM AND HIS OTHER BROTHER WERE ON THEIR WAY IN.
[2024-08-29] MEDS ORDERED: Aspirin 81 MG Chew PO SCH (09:00)
[2024-08-29] MEDS ORDERED: Heparin Sodium,Porcine 5,000 UNIT/0.5 ML SDV SC SCH (09:00)
[2024-08-29] MEDS ORDERED: Atenolol 25 MG Tab PO SCH (09:00)
[2024-08-29] MEDS ORDERED: Atenolol 50 MG Tab PO SCH (09:00)
[2024-08-29 09:26] LABS: Base Excess Venous 8.9 mmol/L; Bicarbonate Venous 30.1 mmol/L (24.0-30.0); PCO2 Venous 67.5 mmHg (38-42); pH Blood Venous 7.32 (7.34-7.37)
[2024-08-29] MEDS ORDERED: NS 1,000 ML BAG IR ONE (09:35)
[2024-08-29] MEDS ORDERED: NS 500 ML IV ONE (09:40)
[2024-08-29] MEDS ORDERED: Dextrose 50% 50 ML Vial IV ONE (12:00)
[2024-08-29 12:23] LABS: Base Excess Venous 7.9 mmol/L; Bicarbonate Venous 29.5 mmol/L (24.0-30.0); PCO2 Venous 62.1 mmHg (38-42); pH Blood Venous 7.34 (7.34-7.37)
--- NOTE | 2024-08-29 13:02 | NUR ---
REASSESSMENT PT HAS BEEN ON BIPAP SINCE TRANSFER THIS MORNING. SHE OPENS EYES TO VOICE, FOLLOWS DIRECTIONS AND HAS BEEN ATTEMPTING TO TALK TO HER CHILDREN WHEN THEY ARE IN THE ROOM. LUNGS ARE VERY DIM. SR/SB WITH RATE IN THE 50-60S, OCCAISONAL PAC. ON TELEMETRY, PT'S V LEAD LOOKED LIKE ST SEGMENT HAD INCREASED. SPOKE WITH DR. LACEY AND EKG ORDERED. DR. LACEY REVIEWED EKG AND IT ACTUALLY LOOKS IMPROVED FROM THE ONE DONE IN THE ED. BLOOD SUGAR [address] LACEY INFORMED AND ORDER FOR D50. VBG IMPROVING SO PLAN TO GIV EPT BREAK FROM BIPAP THIS AFTERNOON AND TRY TO FEED PT IF SAFE.
[2024-08-29 15:11] LABS: Bun/Creatinine Ratio 35.6 (12.0-20.0); Calcium, Blood 8.5 mg/dL (8.5-10.1); Creatinine, Blood 1.04 mg/dL (0.40-1.00)
--- NOTE | 2024-08-29 17:06 | NUR ---
SHIFT SUMMARY PT REMAINED ON BIPAP THIS SHIFT. 30 MINUTE BREAK GIVEN AROUND 1300 AND PT TOELRATED IT ON 2L/NC. PT WAS ABLE TO SAFELY EAT A SMALL AMT OF FOOD AT THAT TIME. TOWARDS THE END OF THE BREAK PT WAS GETTING TIRED SO BIPAP REPLACED. PT'S LUNGS CONTINUE TO BE VERY DIM. SR/SB WITH RATE IN THE 50/60S, BP STABLE WITH MAP IN THE 70 AND 80S. INCONTINENT VOID THIS AFTERNOON. MULTIPLE FAMILY MEMBERS AT BEDSIDE THROUGHOUT THE SHIFT AND HAVE BEEN UPDATED.
[2024-08-29 21:03] LABS: Base Excess Venous 8.9 mmol/L; Bicarbonate Venous 30.2 mmol/L (24.0-30.0); PCO2 Venous 65.8 mmHg (38-42); pH Blood Venous 7.33 (7.34-7.37)
--- NOTE | 2024-08-29 22:33 | NUR ---
ASSUMED CARE AT 1900 PT SITTING UP IN BED WITH TWO SONS AT BEDSIDE. BOTH ARE APPROPRIATE AND LEFT SHORTLY AFTER REPORT. PT IS A/O X4 BUT STATES THAT SHE IS TIRED FROM THE EVENTS OF THE DAY; EASILY FALLS ASLEEP WHEN NOT STIMULATED; SHE IS ABLE TO COMMUNICATE HER NEEDS APPROPRIATLY. SPO2 > 97% ON 2L NC; PLAN TO PLACE BACK ON BIPAP WHILE PT IS SLEEPING. HR 60-70'S. BP STABLE WITH SBP 120'S. INCONTINENT OF URINE; PUREWICK PLACED. TOLERATING TAKING PO MEDS WHOLE WITH APPLESAUCE; NO N/V AT THIS TIME. SALINE LOCKED. SEE SHIFT ASSESSMENT FOR FULL ASSESSMENT.
[2024-08-30] VITALS (16 sets, daily range): BP systolic 108–159; BP diastolic 42–89
[2024-08-30 03:18] LABS: Base Excess Venous 8.2 mmol/L; Bicarbonate Venous 30.3 mmol/L (24.0-30.0); PCO2 Venous 52.5 mmHg (38-42); pH Blood Venous 7.41 (7.34-7.37)
[2024-08-30 03:32] LABS: BASOPHILS ABSOLUTE AUTO 0.05 K/mm3 (0.00-0.23); BASOPHILS PERCENT AUTO 1 % (0-2); EOSINOPHILS ABSOLUTE AUTO 0.13 K/mm3 (0.00-0.68); EOSINOPHILS PERCENT AUTO 3 % (0-6); IMMATURE GRAN ABSOLUTE AUTO 0.02 K/mm3 (0.00-0.10); IMMATURE GRAN PERCENT AUTO 0 % (0-1); LYMPHOCYTES ABSOLUTE AUTO 1.13 K/mm3 (0.84-5.20); LYMPHOCYTES PERCENT AUTO 23 % (21-46); MONOCYTES ABSOLUTE AUTO 0.64 K/mm3 (0.16-1.47); MONOCYTES PERCENT AUTO 13 % (4-13); Mean Corpuscular HGB 26.7 pg (26.0-34.0); Mean Corpuscular HGB Conc 29.5 g/dL (31.5-36.5); Mean Corpuscular Volume 90 fL (80-100); Mean Platelet Volume 9.1 fL (9.1-12.4); NEUTROPHILS ABSOLUTE AUTO 2.98 K/mm3 (1.96-9.15); NEUTROPHILS PERCENT AUTO 60 % (41-73); Platelet Count 156 K/mm3 (150-400); RDW Coefficient Variation 15.9 % (11.7-14.2); RDW Standard Deviation 52.2 fL (35.1-46.3); Red Blood Cell Count 4.87 M/mm3 (3.80-5.20); White Blood Cell Count 4.95 K/mm3 (4.00-11.30)
[2024-08-30 03:50] LABS: Albumin, Blood 2.6 g/dL (3.4-5.0); Albumin/Globulin Ratio 0.8 (0.8-1.8); Bilirubin, Total 0.4 mg/dL (0.1-1.0); Bun/Creatinine Ratio 30.3 (12.0-20.0); Calcium, Blood 8.6 mg/dL (8.5-10.1); Creatinine, Blood 0.99 mg/dL (0.40-1.00); Globulin, Blood 3.3 g/dL (2.2-4.0); Total Protein, Blood 5.9 g/dL (6.4-8.2)
--- NOTE | 2024-08-30 06:58 | NUR ---
END OF SHIFT SUMMARY NO ACUTE EVENTS OVERNIGHT. PT CONT TO BE A/O X4 AND ABLE TO MAKE HER NEEDS KNOWN. SHE WAS ABLE TO TAKE BREAKS OFF THE BIPAP SUCCESSFULLY ON 2L NC; SHE DID TOLERATE A TOTAL OF 6 HOURS ON THE BIPAP WHILE SHE SLEPT WITH BIPAP SETTINGS 18/6, FIO2 30%. AFEBRILE. HR 60-70'S. SBP 120-140'S. PUREWICK IN PLACE WITH A FEW BRIEF CHANGES R/T INCONT OF URINE. NO STOOL. SALINE LOCKED. PT DAUGHTER AT BEDSIDE EARLY THIS AM AND IS APPROPRIATE WITH PT AND STAFF. WILL REPORT TO AM RN WHEN AVAILABLE.
--- NOTE | 2024-08-30 08:45 | NUR ---
ASSUMED CARE BEDSIDE REPORT FROM SYLVIA ATKINSON AT 0700. PT RESTING IN BED. FAMILY AT BEDSIDE. BIPAP IN PLACE, 18/6/30%, TV 500-520 MLS, RR 22. PT PLACED ON 2L VIA NC AT APPROX 0815. TOLERATING WELL. LUNGS DIM. A&OX 4. FOLLOWS COMMANDS. ABLE TO MAKE NEEDS KNOWN. SB, RATE 50-60'S. BP STABLE. ABD OBESE, SOFT, NON TENDER, BT X 4. TOLERATING PO WELL. PUREWICK IN PLACE. PT STATUS CHANGED TO PCU. WILL CONTINUE PLAN OF CARE.
[2024-08-30] MEDS ORDERED: Insulin Human Lispro 100 Units/ML 3ML Syringe SC SCH (11:30)
--- NOTE | 2024-08-30 17:18 | NUR ---
SHIFT SUMMARY STATUS CHANGED TO PCU THIS SHIFT. REMAINED ON 1-2 L SINCE THIS AM. TOLERATING WELL. PLAN FOR BIPAP DURING SLEEP. LUNGS DIM IN BASES. NO COUGH NOTED. SPEAKING IN FULL SENTENCES. SB-SR THIS SHIFT, RATE 50-60, BP STABLE. ABD OBESE, SOFT, NON TENDER. INCONTINENT OF BOWEL AND BLADDER. POWERGLIDE TO RUE, PIV TO LAC. DRESSINGS C/D/I. PT WORKED c PT AND OT THIS SHIFT. UP TO CHAIR c WALKER AND ONE PERSON ASSIST. WILL CONTINUE PLAN OF CARE UNTIL REPORT TO ONCOMING NURSE.
--- NOTE | 2024-08-30 22:00 | NUR ---
ASSUMPTION OF CARE/ASSESSMENT: ASSUMED CARE OF PT AT 1900; REPORT RECIEVED FROM ERIC ATKINSON. PT A&O X 4, PLEASANT AND COOPERATIVE WITH CARE, AND USING CALL LIGHT APPROPRIATELY. WHILE AWAKE PT ON NC @ 1-2 LPM, SPO2 96< AND DENIES SOB AT THIS TIME; WHILE SLEEPING PT ON BIPAP WITH SETTINGS 16/8, FIO2 30%. PT SR ON MONITOR WITH HR 60'S, SBP 140'S AND DENIES CHEST PAIN AT THIS TIME. TOLERATING FULL LIQUID DIET. PT USES BSC, INTERMITTEN INCONTINENCE WITH ATTENDS IN PLACE. PPP X 4; BILAT FEET ARE COOL, DECREASED CAP REFIL ARE PURPLE DISCOLORATION NOTED; PT STATES THIS IS NORMAL. PIV TO LAC THAT IS SALINE LOCKED, PG TO NAVDEEP THAT IS PATENT AND SALINE LOCKED. BED LOWERED, CALL LIGHT IN REACH AND PT SLEEPING.
[2024-08-31 00:27] VITALS: BP 164/74
[2024-08-31 04:50] VITALS: BP 147/87
[2024-08-31 06:52] LABS: BASOPHILS ABSOLUTE AUTO 0.05 K/mm3 (0.00-0.23); BASOPHILS PERCENT AUTO 1 % (0-2); EOSINOPHILS ABSOLUTE AUTO 0.18 K/mm3 (0.00-0.68); EOSINOPHILS PERCENT AUTO 4 % (0-6); Hematocrit 43.3 % (33.0-51.0); Hemoglobin 13.2 g/dL (11.5-16.0); IMMATURE GRAN ABSOLUTE AUTO 0.02 K/mm3 (0.00-0.10); IMMATURE GRAN PERCENT AUTO 1 % (0-1); LYMPHOCYTES ABSOLUTE AUTO 1.41 K/mm3 (0.84-5.20); LYMPHOCYTES PERCENT AUTO 32 % (21-46); MONOCYTES ABSOLUTE AUTO 0.46 K/mm3 (0.16-1.47); MONOCYTES PERCENT AUTO 11 % (4-13); Mean Corpuscular HGB Conc 30.5 g/dL (31.5-36.5); Mean Corpuscular Volume 89 fL (80-100); Mean Platelet Volume 8.6 fL (9.1-12.4); NEUTROPHILS ABSOLUTE AUTO 2.26 K/mm3 (1.96-9.15); NEUTROPHILS PERCENT AUTO 52 % (41-73); Platelet Count 143 K/mm3 (150-400); RDW Coefficient Variation 15.9 % (11.7-14.2); RDW Standard Deviation 50.9 fL (35.1-46.3); Red Blood Cell Count 4.89 M/mm3 (3.80-5.20); White Blood Cell Count 4.38 K/mm3 (4.00-11.30)
[2024-08-31 07:04] LABS: Base Excess Venous 10.2 mmol/L; Bicarbonate Venous 31.3 mmol/L (24.0-30.0); PCO2 Venous 66.2 mmHg (38-42); pH Blood Venous 7.34 (7.34-7.37)
--- NOTE | 2024-08-31 07:09 | NUR ---
SHIFT SUMMARY: NO ACUTE CHANGES OVERNGIHT; VSS THROUGHOUT THE SHIFT. PT SLEPT THROUGHOUT THE NIGHT. INCONTINENT ONCE; ATTENDS AND JARRETT PAD REPLACED. BED LOWERED, CALL LIGHT IN REACH. REPORT GIVEN TO LEE ANN ATKINSON.
[2024-08-31 07:18] LABS: Albumin, Blood 2.6 g/dL (3.4-5.0); Albumin/Globulin Ratio 0.8 (0.8-1.8); Bilirubin, Total 0.4 mg/dL (0.1-1.0); Bun/Creatinine Ratio 21.3 (12.0-20.0); Calcium, Blood 8.8 mg/dL (8.5-10.1); Creatinine, Blood 0.84 mg/dL (0.40-1.00); Globulin, Blood 3.1 g/dL (2.2-4.0); Potassium, Blood 3.7 mmol/L (3.5-5.5); Total Protein, Blood 5.7 g/dL (6.4-8.2)
[2024-08-31 08:06] VITALS: BP 140/101
[2024-08-31] MEDS ORDERED: ALBU2.5V5 INH (10:49)
[2024-08-31] MEDS ORDERED: INSULANPEN SC (10:54)
[2024-08-31 14:32] VITALS: BP 161/79
--- NOTE | 2024-08-31 16:00 | NUR ---
SUMMARY PT A/O X4 TODAY. OOB TO CHAIR MOST OF THE DAY. ONE PERSON ASSIST WITH WALKER. BP WAS HIGH THIS AFTERNOON AND AM DOSE OF ATENOLOL WAS GIVEN AFTER IT WAS INITIALLY HELD THIS AM. TOLERATING MEALS AND GETTING TO BSC. JEFF CAME WITH HOME BIPAP AND EDUCATED PT ON HOW TO USE. REPORT GIVEN TO [facility] AND DISCHARGE PACKET WITH AMBULANCE COMPANY FOR TRANSPORT. NO SIGN OF DISTRESS PT LEAVES IN W/C.
== END 2024-08-31 16:20 | DRG 682 ==
LOC: ER 12:42 → PCU 18:18 → ICUE 18:18 → PCU 20:12 → ICUE 08-29 07:15
PROVIDERS: Emergency Medicine; Internal Medicine Critical Care Medicine; Nurse Practitioner Acute Care; Student in an Organized Health Care Education/Training Program; ADMIT Student in an Organized Health Care Education/Training Program
PROC: 5A09457 Assistance with Respiratory Ventilation, 24-96 Consecutive Hours, Continuous Positive Airway Pressure (ICD-10-PCS; principal; 2024-08-29)
DX: N17.9 Acute kidney failure, unspecified (principal); G92.8 Other toxic encephalopathy; J96.22 Acute and chronic respiratory failure with hypercapnia; I21.A1 Myocardial infarction type 2; I42.2 Other hypertrophic cardiomyopathy; Z68.41 Body mass index [BMI] 40.0-44.9, adult; J44.9 Chronic obstructive pulmonary disease, unspecified; E11.40 Type 2 diabetes mellitus with diabetic neuropathy, unspecified; K52.9 Noninfective gastroenteritis and colitis, unspecified; K21.9 Gastro-esophageal reflux disease without esophagitis; M10.9 Gout, unspecified; I10 Essential (primary) hypertension; G47.33 Obstructive sleep apnea (adult) (pediatric); E66.01 Morbid (severe) obesity due to excess calories; Z88.5 Allergy status to narcotic agent; Z88.8 Allergy status to other drugs, medicaments and biological substances; Z79.4 Long term (current) use of insulin; Z79.899 Other long term (current) drug therapy; Z79.82 Long term (current) use of aspirin; Z91.199 Patient's noncompliance with other medical treatment and regimen due to unspecified reason; Z87.891 Personal history of nicotine dependence
CPT/HCPCS: 0241U; 36415; 71045; 80048; 80053; 81001; 82803; 82947; 83735; 83880; 84484; 85025; 85027; 93005; 93010; 93308; 93321; 94660; 94760; 96360; 96361; 97110; 97116; 97162; 97165; 97530; 99285-25; A9270; C1751; J1644; J1815; J7030; J7040; J7799

== ENCOUNTER → 2024-09-06 | Outpatient (CLI) | payer MEDICARE, OTHER ==
[~2024-09-06] MED LIST changes: +ALBU2.5V5 INH; +FUROSEMIDE40 MG PO; +INSULANPEN SC; +KETOROLAC TROMET3 ML; +NEURONTIN300 MG PO; +NOVOLOG100 UNIT/2; +OCUFLOX511; +PRED FORTE5 ML; +TOUJEO SOL300 UNIT/2; +[UNRECOGNIZED DRUG - SUPPLY]
[2024-09-06 10:57] LABS: BASOPHILS ABSOLUTE AUTO 0.05 K/mm3 (0.00-0.23); BASOPHILS PERCENT AUTO 1 % (0-2); EOSINOPHILS ABSOLUTE AUTO 0.14 K/mm3 (0.00-0.68); EOSINOPHILS PERCENT AUTO 2 % (0-6); Hematocrit 47.4 % (33.0-51.0); Hemoglobin 14.8 g/dL (11.5-16.0); IMMATURE GRAN ABSOLUTE AUTO 0.02 K/mm3 (0.00-0.10); IMMATURE GRAN PERCENT AUTO 0 % (0-1); LYMPHOCYTES ABSOLUTE AUTO 1.81 K/mm3 (0.84-5.20); LYMPHOCYTES PERCENT AUTO 31 % (21-46); MONOCYTES ABSOLUTE AUTO 0.56 K/mm3 (0.16-1.47); MONOCYTES PERCENT AUTO 9 % (4-13); Mean Corpuscular HGB 26.8 pg (26.0-34.0); Mean Corpuscular HGB Conc 31.2 g/dL (31.5-36.5); Mean Corpuscular Volume 86 fL (80-100); Mean Platelet Volume 8.9 fL (9.1-12.4); NEUTROPHILS ABSOLUTE AUTO 3.35 K/mm3 (1.96-9.15); NEUTROPHILS PERCENT AUTO 57 % (41-73); Platelet Count 197 K/mm3 (150-400); RDW Coefficient Variation 16.4 % (11.7-14.2); RDW Standard Deviation 49.1 fL (35.1-46.3); Red Blood Cell Count 5.53 M/mm3 (3.80-5.20); White Blood Cell Count 5.93 K/mm3 (4.00-11.30)
[2024-09-06 11:13] LABS: Albumin, Blood 3.4 g/dL (3.4-5.0); Albumin/Globulin Ratio 0.9 (0.8-1.8); Bilirubin, Total 0.5 mg/dL (0.1-1.0); Bun/Creatinine Ratio 14.8 (12.0-20.0); Calcium, Blood 8.9 mg/dL (8.5-10.1); Creatinine, Blood 1.35 mg/dL (0.40-1.00); Globulin, Blood 3.7 g/dL (2.2-4.0); Potassium, Blood 3.8 mmol/L (3.5-5.5); Total Protein, Blood 7.1 g/dL (6.4-8.2)
== END ==
LOC: LAB SHORT 10:22 → LAB 10:22
PROVIDERS: Physician Assistant
DX: R31.9 Hematuria, unspecified (principal)
CPT/HCPCS: 80053; 85025; 87086

== ENCOUNTER → 2025-05-10 | Outpatient (CLI) | payer MEDICARE, OTHER ==
[2025-05-10 16:05] LABS: Source, Urine Clean Catch
[2025-05-10 17:42] LABS: Bilirubin, Urine Neg (Neg); Color, Urine Yellow (P-Yellow); Glucose Qualitative, Urine 4+ (Neg); Ketones, Urine Neg (Neg); Leukocyte Esterase, Urine 1+ (Neg); Protein, Urine 3+ (Neg); Specific Gravity, Urine 1.015 (1.003-1.022); Urobilinogen, Urine NORM (Normal)
[2025-05-10 18:26] LABS: Yeast/Fungi Urine Few /hpf
== END ==
LOC: LAB SHORT 16:01 → LAB 16:01
PROVIDERS: Family Medicine
DX: N39.0 Urinary tract infection, site not specified (principal); R30.0 Dysuria; R31.9 Hematuria, unspecified
CPT/HCPCS: 81001; 87077; 87086; 87186